=== PATIENT | male | born 1985 ===

== ENCOUNTER 2018-10-24 18:32 | Emergency (ER) | payer OTHER ==
--- NOTE | 2018-10-24 18:44 | Emergency Department Report ---
Blank Doc - Documentation Documentation: 32 y o male presents to ED xx sore throat 3 days worse today, denies fever Right sided pain ACC Eval
--- NOTE | 2018-10-24 20:04 | Emergency Department Report ---
ED ENT HPI - General Chief complaint: Sore Throat Stated complaint: SORE THROAT Time Seen by Provider: 10/24/18 18:42 Source: patient Mode of arrival: Ambulatory Limitations: No Limitations - History of Present Illness Initial comments: This is a 32-year-old -[place] male who presents with 3-4 days. Patient reports pain increased over the past day. He also reports a cough and rhinorrhea. He denies fever, nausea or pain, hoarseness, chest pain, or shortness of breath. MD complaint: sore throat Onset/Timin -: days(s) Location: throat Severity: severe Severity scale (0 -10): 9 Quality: aching Improves with: none Worsens with: swallowing, eating Associated Symptoms: cough, pain with swallowing, sore throat. denies: fever, gum swelling, toothache, tinnitus, hearing loss, discharge from ear, rhinorrhea - Related Data Previous Rx's Medication Instructions Recorded Last Taken Type Benzocaine/Mentho [Cepacol X 8 each MM Q2H PRN #2 packet 10/24/18 Unknown Rx Strength] methylPREDNISolone [Medrol] 4 mg PO DAILY #1 tab.ds.pk 10/24/18 Unknown Rx Allergies Allergy/AdvReac Type Severity Reaction Status Date / Time shellfish derived Allergy Vomiting Verified 10/24/18 18:34 ED Dental HPI - General Chief complaint: Sore Throat Stated complaint: SORE THROAT Time Seen by Provider: 10/24/18 18:42 Source: patient Mode of arrival: Ambulatory Limitations: No Limitations - Related Data Previous Rx's Medication Instructions Recorded Last Taken Type Benzocaine/Mentho [Cepacol X 8 each MM Q2H PRN #2 packet 10/24/18 Unknown Rx Strength] methylPREDNISolone [Medrol] 4 mg PO DAILY #1 tab.ds.pk 10/24/18 Unknown Rx Allergies Allergy/AdvReac Type Severity Reaction Status Date / Time shellfish derived Allergy Vomiting Verified 10/24/18 18:34 ED Review of Systems ROS: Stated complaint: SORE THROAT Other details as noted in HPI Constitutional: denies: chills, fever ENT: throat pain. denies: ear pain, congestion Respiratory: cough. denies: shortness of breath, wheezing Cardiovascular: denies: chest pain, palpitations Gastrointestinal: denies: abdominal pain, nausea, diarrhea Skin: denies: rash, lesions Neurological: denies: headache, weakness, paresthesias Psychiatric: denies: anxiety, depression ED Past Medical Hx - Past Medical History Previous Medical History?: No - Surgical History Additional Surgical History: right femur - Social History Smoking Status: Current Every Day Smoker Substance Use Type: None - Medications Home Medications: Home Medications Medication Instructions Recorded Confirmed Last Taken Type Benzocaine/Mentho [Cepacol X 8 each MM Q2H PRN #2 packet 10/24/18 Unknown Rx Strength] methylPREDNISolone [Medrol] 4 mg PO DAILY #1 tab.ds.pk 10/24/18 Unknown Rx ED Physical Exam - General Limitations: No Limitations General appearance: alert, in no apparent distress - ENT ENT exam: Present: mucous membranes moist, other (turbinates mildly congested with clear discharge). Absent: normal orophraynx (erythematous, bulging tonsils with exudate, uvula midline), TM's normal bilaterally, normal external ear exam - Neck Neck exam: Present: full ROM, lymphadenopathy (anterior cervical lymphadenopathy, mobile, tender). Absent: tenderness, meningismus, thyromegaly - Respiratory Respiratory exam: Present: normal lung sounds bilaterally. Absent: respiratory distress - Cardiovascular Cardiovascular Exam: Present: regular rate, normal rhythm. Absent: systolic murmur, diastolic murmur, rubs, gallop - GI/Abdominal GI/Abdominal exam: Present: soft, normal bowel sounds - Neurological Exam Neurological exam: Present: alert, oriented X3 - Psychiatric Psychiatric exam: Present: normal affect, normal mood - Skin Skin exam: Present: warm, dry, intact, normal color. Absent: rash ED Course Vital Signs 10/24/18 18:43 Temperature 98.6 F Pulse Rate 64 Respiratory 16 Rate Blood Pressure 136/84 O2 Sat by Pulse 99 Oximetry ED Medical Decision Making - Lab Data Lab Results 10/24/18 Range/Units 20:13 Group A Strep Rapid Positive A (Negative) - Medical Decision Making Patient examined by me and stable. No distress noted. Rapid strep obtained and positive. Vitals stable. Given Bicillin and ibuprofen while in the ER. Take Tylenol or ibuprofen for pain. Start Medrol Dosepak and Magic mouthwash. Discussed plan with patient and he agreed with plan to treat outpatient. Discharged home. Return to work tomorrow. Follow up with PCP in 48-72 hours. Critical care attestation.: If time is entered above; I have spent that time in minutes in the direct care of this critically ill patient, excluding procedure time. ED Disposition Clinical Impression: Sore throat, Acute streptococcal pharyngitis Disposition: TO HOME OR SELFCARE Is pt being admited?: No Does the pt Need Aspirin: No Condition: Stable Instructions: Strep Throat (ED) Additional Instructions: Expect symptoms to improve within 3 or 4 days. There is no need for bed rest or isolation. Use Tylenol or ibuprofen for symptoms of sore throat, headache, and fever. Return to work in 24 hours of taking antibiotics. Follow up with Primary Care Provider in 48-72 hours. Prescriptions: Benzocaine/Mentho [Cepacol X Strength] 8 each MM Q2H PRN #2 packet PRN Reason: Sore Throat methylPREDNISolone [Medrol] 4 mg PO DAILY #1 tab.ds.pk [facility]: [facility] - 3-5 Days [facility] [Outside] - 3-[address] [facility] [Outside] - 3-5 Days Time of Disposition: 21:47
[2018-10-24] MEDS ORDERED: BICILLIN L-A IM ONE (21:44)
[2018-10-24] MEDS ORDERED: IBUPROFEN PO ONE (21:44)
[2018-10-24] MEDS ORDERED: DECADRON IM ONE (21:51)
[2018-10-24 22:26] VITALS: BP 118/81
== END 2018-10-24 22:25 | disposition home or self-care (01) ==
LOC: ED 18:32
DX: J02.0 Streptococcal pharyngitis (principal); F17.200 Nicotine dependence, unspecified, uncomplicated
CPT/HCPCS: 87430; 96372; 99283; J0561; J1100